=== PATIENT | female | born 1995 | race Two or more races ===

== ENCOUNTER 2016-06-06 21:10 | Emergency (ER) | payer SELFPAY ==
[~2016-06-06] VITALS: Ht 152.4 cm; Wt 75.3 kg
[2016-06-06] MEDS ORDERED: Promethazine/Codeine 5ml UD ORAL ONE (22:00)
[2016-06-06 22:06] VITALS: BP 125/74
[2016-06-06 22:32] LABS: APPEARANCE,URINE CLEAR; KETONES,URINE NEGATIVE (NEGATIVE); LEUKOCYTE ESTERASE ,URINE 1+ (NEGATIVE); NITRITE,URINE NEGATIVE (NEGATIVE); PH,URINE 6 (4.5-8.0); PROTEIN,URINE NEGATIVE (NEGATIVE); UROBILINOGEN,URINE NORMAL MG/DL (0.0-1.0)
[2016-06-06 22:42] LABS: RBC,URINE 0-2 /HPF (0 - 2)
[2016-06-06 22:43] LABS: BACTERIA,URINE FEW /HPF; SQUAMOUS EPITHELIAL CELL,UR OCCASIONAL /LPF (NONE/OCC); WBC,URINE 0-2 /HPF (0 - 2)
[2016-06-06] MEDS ORDERED: PROMETH-CODEIN 65 ML PO (23:33)
[2016-06-06] MEDS ORDERED: TRAMADOL HCL50 MG ORAL (23:33)
[2016-06-06] MEDS ORDERED: AMOXICILLIN500 MG ORAL (23:33)
[2016-06-06] MEDS ORDERED: IBUPROFEN600 MG ORAL (23:33)
[2016-06-06] MEDS ORDERED: ZOFRAN ODT4 MG ORAL (23:33)
[2016-06-06 23:55] VITALS: BP 125/74
--- NOTE | 2016-06-07 09:42 | Emergency Room Report ---
History of Present Illness General Chief Complaint: Headache Source: Patient Present Illness HPI 3 days or URI with cough and sore throat. Headache. Pain in head and throat = 8/10 - throat is burning and sharp, head is more aching and pounding. Not radiate down neck. Cough is non-productive. No NVD, no rashes, neck stiffness , extremity pain or weakness. Tolerating po intake well. Tried some OTC meds, not help. Concern over prior head injury. No dysuria, . Allergies: Coded Allergies: No Known Allergies (Unverified , 06/06/16) Patient History Social History: Denies: smoking Social History Narrative unemployed Last Menstrual Period: 06/04/16 Now: No Reviewed Nursing Documentation: PMH: Agreed, PSxH: Agreed Nursing Documentation-PMH Past Medical History: No Stated History Review of Systems All Other Systems: negative except mentioned in HPI Physical Exam Vital Signs Date Time Temp Pulse Resp B/P Pulse Ox O2 Delivery O2 Flow Rate FiO2 06/06/16 21:30 97.9 73 16 125/74 100 Room Air Sp02 EP Interpretation: reviewed, normal General Appearance: well appearing, no apparent distress, alert, GCS 15, non- toxic Head: normocephalic, atraumatic Eyes: bilateral eye EOMI, bilateral eye PERRL, bilateral eye normal inspection ENT: hearing grossly normal, normal voice, TMs + canals normal, pharyngeal erythema Neck: full range of motion, supple, no meningismus Respiratory: chest non-tender, lungs clear, no respiratory distress, speaking full sentences Cardiovascular #1: regular rate, rhythm, no edema Cardiovascular #2: 2+ radial (R) Gastrointestinal: normal inspection, normal bowel sounds, soft Musculoskeletal: digits/nails normal, gait/station normal, normal range of motion Neurologic: alert, oriented x3, normal gait, grossly normal Psychiatric: mood/affect normal - slight anxiety Skin: normal inspection, normal color, no rash Medical Decision Making Diagnostic Impression: Primary Impression: Pharyngitis Qualified Codes: J02.9 - Acute pharyngitis, unspecified Additional Impression: Headache Qualified Codes: R51 - Headache ER Course Patient with sore throat and headache. Ddx; viral, strep, sinusitis, influenza , meningitis. Exam against latter. Difficult to determine if influenza -- if so needs antiviral. Patient will be treated in ED and flu checked. Flu negative. Treat for pharyngitis (and possible sinusitis). Improved. Patient stable for outpatient observation and treatment. Laboratory Tests Test 06/06/16 22:08 Urine Color Pale yellow Urine Appearance Clear Urine pH 6 (4.5-8.0) Urine Specific [place] 1.010 (1.005-1.035) Urine Protein Negative (NEGATIVE) Urine Glucose (UA) Negative (NEGATIVE) Urine Ketones Negative (NEGATIVE) Urine Occult Blood 5+ (NEGATIVE) H Urine Nitrite Negative (NEGATIVE) Urine Bilirubin Negative (NEGATIVE) Urine Urobilinogen Normal MG/DL (0.0-1.0) Urine Leukocyte Esterase 1+ (NEGATIVE) H Urine RBC 0-2 /HPF (0 - 2) Urine WBC 0-2 /HPF (0 - 2) Urine Squamous Epithelial Cells Occasional /LPF Urine Bacteria Few /HPF (NONE) Urine HCG, Qualitative Negative Microbiology Date/Time Source Procedure Growth Status 06/06/16 22:24 Nasal Nares Influenza Types A,B Antigen (RAMESH) - Final Complete Last Vital Signs Date Time Temp Pulse Resp B/P Pulse Ox O2 Delivery O2 Flow Rate FiO2 06/06/16 23:55 97.9 73 16 125/74 100 Room Air Status: improved Disposition: HOME, SELF-CARE Condition: Improved Scripts Ondansetron Odt* (ZOFRAN ODT*) 4 Mg Tab.rapdis 4 MG ORAL Q8H Y for Nausea & Vomiting, #6 TAB 0 Refills Prov: Doroteo Tsang M.D. 06/06/16 Tramadol Hcl* (ULTRAM*) 50 Mg Tablet 50 MG ORAL Q6H Y for For Pain, #10 TAB 0 Refills Do not mix with the cough syrup. Prov: Doroteo Tsang M.D. 06/06/16 Ibuprofen* (MOTRIN*) 600 Mg Tablet 600 MG ORAL Q6H Y for For Pain, #20 TAB Prov: Doroteo Tsang M.D. 06/06/16 Promethazine HCl/Codeine (Prometh-Codein 6.25-10 mg/5 ml) 5 Ml Syrup 5 ML PO Q6HR Y for For Cough, #60 ML Prov: Doroteo Tsang M.D. 06/06/16 Amoxicillin* (AMOXIL*) 500 Mg Capsule 500 MG ORAL EVERY 8 HOURS, #21 CAP Prov: Doroteo Tsang M.D. 06/06/16 Departure Forms: Return to School, Return to School On: Jun 10, 2016 School Release Restrictions: None Return to Work Return to Work in (Days): 3 Return to Work Date: Jun 10, 2016 Additional Instructions: The headache comes from the fever and trying to fight the infection. OK to take tylneol. Doroteo Tsang M.D. Jun 07, 2016 09:42
== END 2016-06-06 23:55 | disposition home or self-care (01) ==
LOC: EMR 21:58
DX: J02.9 Acute pharyngitis, unspecified (principal); R51 Headache
CPT/HCPCS: 81003; 81025; 86710; 99284

== ENCOUNTER 2017-05-08 08:01 | Emergency (ER) | payer MEDICAID ==
[~2017-05-08] VITALS: Ht 152.4 cm; Wt 71.7 kg
[~2017-05-08 08:01] MED LIST: AMOXICILLIN500 MG ORAL; IBUPROFEN600 MG ORAL; PROMETH-CODEIN 65 ML PO; TRAMADOL HCL50 MG ORAL; ZOFRAN ODT4 MG ORAL
[2017-05-08 08:21] VITALS: BP 107/70
[2017-05-08] MEDS ORDERED: KEFLEX500 MG ORAL (08:21)
[2017-05-08 08:23] VITALS: BP 107/70
--- NOTE | 2017-05-08 08:32 | Emergency Room Report ---
History of Present Illness General Chief Complaint: General Complaint Source: Patient Present Illness HPI 22-year-old female walked in with 3 weeks of pain to medial aspect of the left big toe, turned for ingrown toenail. She states pus started oozing from the side of nail. Has not taken in any antibiotics, has not done any instrumentation herself to remove the pressure. Allergies: Coded Allergies: No Known Allergies (Unverified , 06/06/16) Patient History Past Medical History: none Past Surgical History: none Pertinent Family History: none Social History: Denies: smoking, alcohol use, drug use Now: No Immunizations: UTD Reviewed Nursing Documentation: PMH: Agreed, PSxH: Agreed Nursing Documentation-PMH Past Medical History: No Stated History Review of Systems All Other Systems: negative except mentioned in HPI Physical Exam Vital Signs Date Time Temp Pulse Resp B/P (MAP) Pulse Ox O2 Delivery O2 Flow Rate FiO2 05/08/17 08:09 98.3 77 20 107/70 96 Room Air 98.2 Sp02 EP Interpretation: reviewed, normal General Appearance: normal inspection, well appearing, no apparent distress, alert, GCS 15, non-toxic Head: normocephalic, atraumatic Eyes: bilateral eye PERRL, bilateral eye EOMI ENT: normal ENT inspection, hearing grossly normal, normal pharynx, no angioedema, normal voice, TMs + canals normal, uvula midline, moist mucus membranes Neck: normal inspection, full range of motion, supple, thyroid normal, no meningismus, no bony tend Respiratory: normal inspection, lungs clear, normal breath sounds, no rhonchi, no respiratory distress, no retraction, no accessory muscle use, no wheezing, speaking full sentences Cardiovascular #1: regular rate, rhythm, no edema, no JVD, normal capillary refill Gastrointestinal: normal inspection, normal bowel sounds, non tender, soft, no mass, no peritonitis, non-distended, no guarding, no hernia, no pulsatile mass Genitourinary: no CVA tenderness Musculoskeletal: normal inspection, back normal, normal range of motion, no calf tenderness, pelvis stable, Derik's Sign negative, other - left foot: medial aspect, ingrown nail with puncture thru skin, pus drainage. Surrounding erythema, cellulitic Neurologic: normal inspection, alert, oriented x3, responsive, microsoft dynamics developer III-XII nml as tested, motor strength/tone normal, cerebellar normal, normal gait, speech normal Psychiatric: normal inspection, judgement/insight normal, mood/affect normal, no suicidal/homicidal ideation, no delusions Skin: normal inspection, normal color, no rash Lymphatic: normal inspection, no adenopathy Medical Decision Making Diagnostic Impression: Primary Impression: Ingrown nail Additional Impression: Cellulitis of toe of left foot ER Course Ingrown toenail, big left toe Associated cellulitis VSS, afebrile Rx keflex for cellulitis Provided Dr Yang contact info for Podiatry, nail removal ER course: Patient has remained stable during ED stay. Disposition: Patient is to be discharged to home. Prescriptions given are keflex Patient is instructed to follow up with their primary care doctor within 5 days. Strict return precautions discussed with patient such as fever, chills, worsening/severe pain, nausea, vomiting, which may indicate severe illness. Patient verbalizes understanding and agrees with plan. Please note that this Emergency Department Report was dictated using [employer] broker technology software, occasionally this can lead to erroneous entry secondary to interpretation by the dictation equipment Last Vital Signs Date Time Temp Pulse Resp B/P (MAP) Pulse Ox O2 Delivery O2 Flow Rate FiO2 05/08/17 08:23 98.2 65 20 107/70 96 Room Air 98.2 Status: improved Disposition: HOME, SELF-CARE Condition: Improved Scripts Cephalexin* (KEFLEX*) 500 Mg Capsule 500 MG ORAL Q6H for 7 Days, #28 CAP 0 Refills Prov: BYRON OLSEN M.D. 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 May 08, 2017 08:32
== END 2017-05-08 08:43 | disposition home or self-care (01) ==
LOC: EMR 08:38
DX: L60.0 Ingrowing nail (principal); L03.116 Cellulitis of left lower limb
CPT/HCPCS: 99283